=== PATIENT | female | born 1960 | race Caucasian/White ===

== ENCOUNTER 2021-01-22 23:20 | Emergency (ER) | payer OTHER ==
[~2021-01-22] VITALS: Ht 165.1 cm; Wt 68.0 kg
[2021-01-23 01:06] LABS: URINE BILIRUBIN NEGATIVE (Negative); URINE BLOOD TRACE (Negative); URINE CLARITY CLEAR; URINE COLOR YELLOW; URINE GLUCOSE-RANDOM NEGATIVE (Negative); URINE KETONES 1+ (Negative); URINE LEUKOCYTES-REFLEX 1+ (Negative); URINE NITRITE-REFLEX NEGATIVE (Negative); URINE PROTEIN TRACE (Negative); URINE SPECIFIC GRAVITY >= 1.030 (1.005-1.030); URINE UROBILINOGEN 0.2 E.U./dl (0.2-1.0)
[2021-01-23 01:08] LABS: ABSOLUTE EOSINOPHILS 0.1 thou/uL (0.0-0.7); ABSOLUTE LYMPHOCYTES 2.8 thou/uL (0.8-5.3); ABSOLUTE MONOCYTES 0.4 thou/uL (0.0-1.2); ABSOLUTE NEUTROPHILS 8.9 thou/uL (1.6-8.1); BASOPHILS 0.4 %; HEMOGLOBIN 14.4 gm/dL (12.0-15.0); LYMPHOCYTES 22.6 %; MCH 30.6 pg (26.0-34.0); MCHC 34.4 g/dL (28.0-37.0); MONOCYTES 3.2 %; MPV 7.7 fl. (7.2-11.1); NUCLEATED RBCS 0 /100WBC; PLATELET COUNT* 245 thou/uL (150-400); POLYS 72.8 %; RBC 4.72 mil/uL (4.20-5.00); RDW-CV 13.2 % (10.5-14.5); WBC 12.2 thou/uL (4.0-11.0)
[2021-01-23 01:20] LABS: CALCIUM 8.9 mg/dL (8.5-10.1); CREATININE 0.7 mg/dL (0.6-1.3); POTASSIUM 3.5 mmol/L (3.5-5.1)
[2021-01-23 01:24] LABS: ALBUMIN 4.5 g/dL (3.4-5.0); TOTAL BILIRUBIN 0.7 mg/dL (<0.1-1.0); TOTAL PROTEIN 8.1 g/dL (6.4-8.2)
[2021-01-23 01:27] LABS: CASTS None Seen /LPF (None Seen); MUCUS 4-6 Moderate strn/LPF (None Seen); SQUAMOUS 4-10 Moderate /LPF (0-3)
[2021-01-23 01:28] LABS: URINE WBC-REFLEX 6-15 Few /HPF (0-5)
[2021-01-23 01:29] LABS: URINE RBC 0-2 Rare /HPF (0-2)
[2021-01-23 01:30] LABS: CALCIUM OXALATE 4-10 Moderate /LPF (None Seen)
[2021-01-23] MEDS ORDERED: ACETAMINOPHEN-1 EAC2 PO (02:30)
[2021-01-23] MEDS ORDERED: ZOFRAN ODT4 MG PO (02:30)
[2021-01-23] MEDS ORDERED: CIPROFLOXACIN500 M1 PO (02:32)
[2021-01-23 03:38] VITALS: BP 138/72
--- NOTE | 2021-01-23 11:49 | EKG ---
[place] [address] ELECTROCARDIOGRAM REPORT Name: GABE LANTIGUA Room: [facility]#: [id number] Admission: 01/22/21 Attend Phys: Discharge: 01/23/21 Date of : 56 Date of Service: 01/23/21 0059 Report #: [id number] THIS REPORT FOR: //name// [facility] ED Test Date: 2021-01-23 Test Time: 00:59:37 Pat Name: GABE LANTIGUA Department: Room: Gender: F Soaker: : 1960 Requested By: Tamela Devlin Order Number: [id number] MD: Malick Ball Measurements Intervals [place] Rate: 80 P: 60 AL: 191 QRS: 47 QRSD: 113 T: 66 QT: 399 QTc: 461 Interpretive Statements Sinus rhythm Consider left atrial enlargement Borderline intraventricular conduction delay Baseline wander in lead(s) V3 No previous ECG available for comparison Electronically Signed On 01-23-2021 11:49:40 CDT by Malick Ball [email or web address] <ELECTRONICALLY SIGNED> By: Malick Ball MD, FACC 01/23/21 1149 0059 0059 Malick Ball MD, [facility] /EPI
== END 2021-01-23 03:38 | disposition home or self-care (01) ==
LOC: M.ERS 23:20
PROVIDERS: Personal Emergency Response Attendant
DX: N39.0 Urinary tract infection, site not specified (principal); R31.9 Hematuria, unspecified; R11.2 Nausea with vomiting, unspecified; R19.7 Diarrhea, unspecified; J45.909 Unspecified asthma, uncomplicated; Z88.0 Allergy status to penicillin; Z88.2 Allergy status to sulfonamides